=== PATIENT | male | born 1995 | race Caucasian/White ===

== ENCOUNTER 2018-08-05 13:14 | Emergency (ER) | payer OTHER ==
[2018-08-05] MEDS ORDERED: IBUP-1542 PO (15:43)
--- NOTE | 2018-08-05 15:49 | ERD ---
ER Documentation Chief Complaint Chief Complaint HPI 23-year-old male with no reported past medical surgical history comes with complaint of left foot pain. Pain localized to the fifth digit of left foot. States he was carrying a stop sign during work which fell on his left foot. This occurred this past since that time with worsening pain with ambulation but improving edema. Pain is controlled while he is at rest. At time examination patient is able to ambulate in examination room without issue. Left foot neurovascularly intact. Otherwise without complaint denying ankle, knee, hip, or back pain. ROS All systems reviewed and are negative except as per history of present illness. Medications Home Meds Active Scripts Naproxen* (Naprosyn*) 500 Mg Tablet, 500 MG PO BID PRN for PAIN AND/OR INFLAMMATION, #30 TAB Prov:JEUDINETRUDYHO PA-C 08/05/18 Ibuprofen* (Motrin*) 600 Mg Tab, 600 MG PO Q6, #30 TAB Prov:JEUDINE,GETHO PA-C 08/05/18 FmHx Family History: No diabetes, No coronary disease, No other Physical Exam Physical Exam Const: No acute distress Head: Atraumatic Eyes: Normal Conjunctiva ENT: Normal External Ears, Nose and Mouth. Neck: Full range of motion. No meningismus. Resp: Clear to auscultation bilaterally Cardio: Regular rate and rhythm, no murmurs Abd: Soft, non tender, non distended. Normal bowel sounds Skin: No petechiae or rashes Back: No midline or flank tenderness Ext: Left fifth digit with some mild erythema mild edema, pain with dorsi flexion, no pain or tenderness at the ankle, SI LT throughout left lower extrem ity, good distal pulses Neur: Awake and alert Psych: Normal Mood and Affect Procedures/MDM 23-year-old male with complaint of left foot, particularly fifth digit pain. X- rays performed of rule out underlying fracture. Patient denies any other injuries. Given history and symptoms no need for further emergent work-up or treatment. Will discharge with appropriate pain medications and PMD follow-up. X-ray with nondisplaced fracture of the middle phalanx of the fifth toe. Patient discharged with appropriate pain medications, Ortho boot, informed to follow-up with orthopedic surgery DISPOSITION PLAN: We discussed follow up with the patient's primary care doctor within 24 to 48 hours. Patient counseled regarding my diagnostic impression and care plan. Prior to discharge all questions answered. Pt agrees with treatment plan and understands strict return precautions. Precautionary instructions provided including instructions to return to the ER if not improving or for any worsening or changing symptoms or concerns. Disclaimer: Inadvertent spelling and grammatical errors are likely due to EHR/dictation software use and do not reflect on the overall quality of patient care. Also, please note that the electronic time recorded on this note does not necessarily reflect the actual time of the patient encounter. Departure Diagnosis: Primary Impression: Injury of toe Condition: Stable Patient Instructions: Sprain Toe Referrals: [facility] YOU HAVE RECEIVED A MEDICAL SCREENING EXAM AND THE RESULTS INDICATE THAT YOU DO NOT HAVE A CONDITION THAT REQUIRES URGENT TREATMENT IN THE EMERGENCY DEPARTMENT. FURTHER EVALUATION AND TREATMENT OF YOUR CONDITION CAN WAIT UNTIL YOU ARE SEEN IN YOUR DOCTORS OFFICE WITHIN THE NEXT 1-2 DAYS. IT IS YOUR RESPONSIBILITY TO MAKE AN APPOINTMENT FOR FOLOW-UP CARE. IF YOU HAVE A PRIMARY DOCTOR --you should call your primary doctor and schedule an appointment IF YOU DO NOT HAVE A PRIMARY DOCTOR YOU CAN CALL OUR PHYSICIAN REFERRAL HOTLINE AT IF YOU CAN NOT AFFORD TO SEE A PHYSICIAN YOU CAN CHOSE FROM THE FO[facility] [address] [facility]. [facility] [address] [facility]. [facility] [address] [facility] [facility] [address] [facility] [address] [facility]. [facility]. [address] Additional Instructions: Call your primary care doctor TOMORROW for an appointment during the next 2-3 days.See the doctor sooner or return here if your condition worsens before your appointment time. MONSTER DAVE PA-C August 05, 2018 15:49
[2018-08-05] MEDS ORDERED: NAPR-985 PO (16:46)
== END 2018-08-05 17:47 | disposition home or self-care (01) ==
LOC: FTE 13:14
DX: S99.922A Unspecified injury of left foot, initial encounter (principal); W20.8XXA Other cause of strike by thrown, projected or falling object, initial encounter; Y92.9 Unspecified place or not applicable
CPT/HCPCS: 73630; 73660; L4386; Z7502